=== PATIENT | female | born 1995 | race Two or more races ===

== ENCOUNTER 2018-01-05 12:20 | Emergency (ER) | payer OTHER ==
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
[2018-01-05 15:02] VITALS: BP 135/97
== END 2018-01-05 15:00 | disposition home or self-care (01) ==
LOC: ER 12:20
DX: S10.81XA Abrasion of other specified part of neck, initial encounter (principal); R10.9 Unspecified abdominal pain; V49.40XA Driver injured in collision with unspecified motor vehicles in traffic accident, initial encounter; Z87.891 Personal history of nicotine dependence
CPT/HCPCS: 99284